=== PATIENT | female | born 1985 | race Hispanic/Latino ===

== ENCOUNTER 2017-12-12 06:07 | Day surgery (SDC) | payer MEDICAID ==
--- NOTE | 2017-12-12 07:54 | Anesthesia Consultation ---
Anesthesia Consult and Med Hx Date of service: 12/12/17 - Airway Anesthetic Teeth Evaluation: Good ROM Head & Neck: Adequate Mental/Hyoid Distance: Adequate Mallampati Class: Class III Intubation Access Assessment: Possibly Difficult - Pre-Operative Health Status ASA Pre-Surgery Classification: ASA3 Proposed Anesthetic Plan: MAC - Other Systems Hx Obesity: Yes (lap band (2010))
--- NOTE | 2017-12-12 07:55 | Anesthesia Day of Surgery ---
Anesthesia Day of Surgery - Day of Surgery Patient Examined: Yes Patient H&P Reviewed: Yes Patient is NPO: Yes
[2017-12-12] MEDS ORDERED: HURRICAINE ONE 20% TOPICAL SPRAY MM (08:07)
[2017-12-12] MEDS ORDERED: DIPRIVAN 10 MG/ML IV ONE (08:08)
--- NOTE | 2017-12-12 08:25 | Operative Report ---
Operative Report Operative Report: OPERATIVE REPORT - EGD DATE 12/12/17 SURGERY: Upper endoscopy. SURGEON: Dr. Delaney MILK POWDER GRINDER: Ashleigh Montemayor DO PRE OP DX: hx of gastric band POST OP DX: distal esophagitis TYPE OF ANESTHESIA: MAC. ESTIMATED BLOOD LOSS: None. COMPLICATIONS: None. SPECIMENS REMOVED: None. FINDINGS: 1. . No erosions or ulcers . no band slippage 2. esophagititis. Normal appearing stomach and first portion of the duodenum. INDICATIONS:INDICATION FOR PROCEDURE: Patient is a 32-year-old female with a long history of morbid obesity. She had a lap gastric band placed previously in 2010 but now has dyspepsia. She feels like food "get stuck" in her throat. PROCEDURE DETAILS: After consent was reviewed, patient was taken back to the operating room where patient was placed in the left lateral decubitus position and a bite block was placed in the mouth. After a time-out was called, MAC anesthesia was initiated. I then passed the endoscope into her oropharynx, into her esophagus, and noted distal esophagitis. I then visualized the stomach which had gastritis and the first portion of the duodenum and there were no abnormalities I could clearly visualize. I then retroflexed the scope in the stomach and visualized the hiatus and I could see the gastric band. No erosion or slip were noted . I then desufflated the stomach and removed the endoscope. Patient tolerated procedure well and was transferred to recovery room in good and stable condition.
--- NOTE | 2017-12-12 08:26 | Discharge Summary ---
Providers - Providers Attending physician: SHON REID Hospitalization Procedures: egd Hospital course: 32 y.o. F with hx of lap gastric band presented for EGD. She tolerated the procedure well. She was discharged home the same day Disposition: TO HOME OR SELFCARE Core Measure Documentation - Palliative Care Palliative Care/ Comfort Measures: Not Applicable - Core Measures Any of the following diagnoses?: none Exam - Physical Exam Narrative exam: no change Plan Additional Instructions: follow up in the office. Follow up with: AMERICA CAMPOS MD [Other] - 7 Days
[2017-12-12 08:51] VITALS: BP 118/82
[2017-12-12] MEDS ORDERED: NACL 0.9% 1000 ML 1,000 ML IV SCH (11:00)
[2017-12-12] MEDS ORDERED: HURRICAINE ONE 20% TOPICAL SPRAY MM NR (11:00)
--- NOTE | 2017-12-12 11:37 | Post Anesthesia Evaluation ---
- Post Anesthesia Evaluation Patient Participated: Yes Airway Patent: Yes Stable Respiratory Function: Yes Nausea/Vomiting: No Temp > 96.8F: Yes Pain Manageable: Yes Adequeate Hydration: Yes Anesthesia Complications: No
== END 2017-12-12 06:08 | disposition home or self-care (01) ==
LOC: GIO 06:07
PROVIDERS: ATTEND Specialist
DX: K20.9 Esophagitis, unspecified (principal); E66.01 Morbid (severe) obesity due to excess calories; Z68.41 Body mass index [BMI] 40.0-44.9, adult; Z98.84 Bariatric surgery status
CPT/HCPCS: 43235; 81025; J2704

== ENCOUNTER 2017-12-22 07:55 | Outpatient (CLI) | payer MEDICAID ==
--- NOTE | 2017-12-22 11:10 | Fluoroscopy Report ---
FLUOROSCOPY UPPER GI WITH AIR AND KUB INDICATION: Epigastric pain, GERD without esophagitis. History of lap band in 2010. Evaluation for gastric sleeve surgery. COMPARISON: None similar at this institution. IMAGES/CINE CLIPS: 21 FINDINGS: Upper GI performed. Patient swallowed thick and thin barium without any difficulty as also tolerated effervescent granules well. Topography Technician radiographs demonstrate grossly normal position and orientation of the lap band with a long connector tubing leading to the port about the left lower chest. Normal esophageal course and caliber without focal mucosal abnormality. Prompt passage of contrast through the lap band into the stomach. Few distal esophageal tertiary contractions may be present, though emptying fairly normal when upright, though slightly impaired/delayed when laying down despite repeated swallows. No hiatal hernia or significant demonstratable gastroesophageal reflux. Imaged stomach appears unremarkable. CONCLUSION: Lap band noted with few other findings, as described. Please correlate. Thank you for the opportunity to participate in this patient's care.
== END 2017-12-22 07:56 | disposition home or self-care (01) ==
LOC: FLUORO 07:55
PROVIDERS: ATTEND Specialist
DX: K21.9 Gastro-esophageal reflux disease without esophagitis (principal); Z98.84 Bariatric surgery status
CPT/HCPCS: 74247

== ENCOUNTER 2018-01-31 11:00 | Outpatient (CLI) | payer MEDICAID | END 2018-01-31 11:01 | disposition home or self-care (01) | LOC: SLR 11:00 | PROVIDERS: ATTEND Otolaryngology | DX: G47.30 Sleep apnea, unspecified (principal); R40.0 Somnolence; R06.83 Snoring | CPT/HCPCS: G0399 ==